=== PATIENT | female | born 1965 | race Caucasian/White ===

== ENCOUNTER 2021-10-12 14:14 | Outpatient (CLI) | payer OTHER ==
[~2021-10-12] VITALS: Ht 154.9 cm; Wt 68.2 kg
[~2021-10-12 14:14] MED LIST: ALBUTEROL SULFATE 2.5 MG/0.5 ML INH NEB SOLN INH PRN; EPINEPHrine INJ 1 MG/ML 1ML AMP IM PRN; diphenhydrAMINE 50MG/ML VIAL (J1200) IV PRN; methylPREDNISolone 125MG 2ML VIAL IV PRN
[2021-10-12 14:56] VITALS: BP 127/65
[2021-10-12] MEDS ORDERED: diphenhydrAMINE 50MG/ML VIAL (J1200) IV ONE (15:00)
[2021-10-12] MEDS ORDERED: ABATACEPT 750 MG OVER 30 MINUTES IV ONE ×2 (15:00)
[2021-10-12] MEDS ORDERED: NS 1,000 ML IV SCH (15:00)
[2021-10-12] MEDS ORDERED: ACETAMINOPHEN TAB 650MG DOSE (2X325MG) PO ONE (15:00)
[2021-10-12 15:47] VITALS: BP 165/81
== END 2021-10-12 15:55 | disposition home or self-care (01) ==
LOC: M INFU 14:14
PROVIDERS: ATTEND Internal Medicine
DX: L40.50 Arthropathic psoriasis, unspecified (principal); Z88.8 Allergy status to other drugs, medicaments and biological substances; Z91.041 Radiographic dye allergy status
CPT/HCPCS: 96365; 96375; J0129; J1200

== ENCOUNTER 2021-11-18 15:18 | Outpatient (CLI) | payer OTHER ==
[~2021-11-18] VITALS: Ht 154.9 cm; Wt 68.2 kg
[~2021-11-18 15:18] MED LIST changes: +ABATACEPT 750 MG OVER 30 MINUTES IV ONE; +ACETAMINOPHEN TAB 650MG DOSE (2X325MG) PO ONE; +NS 1,000 ML IV SCH; +diphenhydrAMINE 25MG IV PRIOR TO INFUSION IV ONE
[2021-11-18 15:20] VITALS: BP 121/69
[2021-11-18] MEDS ORDERED: LYRI75CA PO (16:13)
[2021-11-18] MEDS ORDERED: TIZA4CAP PO (16:13)
[2021-11-18] MEDS ORDERED: VIBE1TAB PO (16:13)
[2021-11-18] MEDS ORDERED: VENTAER INH (16:13)
[2021-11-18] MEDS ORDERED: LISI5TAB11 PO (16:13)
[2021-11-18] MEDS ORDERED: CRES10TA PO (16:13)
[2021-11-18] MEDS ORDERED: ONDA4TAB6 PO (16:13)
[2021-11-18] MEDS ORDERED: TRAZ-252 PO (16:13)
[2021-11-18] MEDS ORDERED: TRAM50TA2 PO (16:13)
[2021-11-18] MEDS ORDERED: CORE25TA PO (16:13)
[2021-11-18 16:45] VITALS: BP 121/67
== END 2021-11-18 16:45 ==
LOC: M INFU 15:18
PROVIDERS: ATTEND Internal Medicine
DX: L40.50 Arthropathic psoriasis, unspecified (principal); Z91.041 Radiographic dye allergy status
CPT/HCPCS: 96365; 96375; J0129; J1200